=== PATIENT | female | born 1975 | race Two or more races ===

== ENCOUNTER 2023-02-12 05:13 | Day surgery (SDC) | payer SELFPAY ==
[2023-02-02 14:50] LABS: BASOPHILS # (AUTO) 0.1 X10'3 (0-0.2); BASOPHILS % (AUTO) 0.4 % (0-1); EOSINOPHILS # (AUTO) 0.1 X10'3 (0-0.9); EOSINOPHILS % (AUTO) 0.9 % (0-6); LYMPHOCYTES # (AUTO) 2.1 X10'3 (1.1-4.8); MEAN CORPUSCULAR HEMOGLOBIN 27.4 PG (27.0-31.0); MEAN CORPUSCULAR HGB CONC 32.9 g/dL (33.0-36.5); MEAN CORPUSCULAR VOLUME 83.4 FL (78-98); MEAN PLATELET VOLUME 7.8 FL (7.4-10.4); MONOCYTES # (AUTO) 0.8 X10'3 (0-0.9); MONOCYTES % (AUTO) 7.1 % (2-12); NEUTROPHILS # (AUTO) 8.5 X10'3 (1.8-7.7); NEUTROPHILS % (AUTO) 73.6 % (42-75); PRE OP HEMATOCRIT 39.2 % (35.0-45.0); PRE OP HEMOGLOBIN 12.9 g/dL (12.0-16.0); PRE OP PLATELET COUNT 267 X10'3 (140-440); RED BLOOD COUNT 4.69 X10'6 (4.20-5.60); RED CELL DISTRIBUTION WIDTH 13.6 % (11.5-14.5)
[2023-02-02 15:00] LABS: ALBUMIN 3.6 G/DL (3.4-5.0); ALKALINE PHOSPHATASE 70 IU/L (46-116); BLOOD UREA NITROGEN 9 MG/DL (7-18); BUN/CREATININE RATIO 12.2 (10.0-20.0); CALCIUM 8.9 MG/DL (8.5-10.1); CHLORIDE 104 MMOL/L (99-107); CREATININE 0.74 MG/DL (0.40-0.90); PRE OP ALT 33 U/L (30-65); PRE OP ANION GAP 9 (8-16); PRE OP AST 23 U/L (10-37); PRE OP BILIRUB, TOTAL 0.3 MG/DL (0.0-1.0); PRE OP GLUCOSE 97 MG/DL (70-104); PRE OP POTASSIUM 3.8 MMOL/L (3.4-5.1); PRE OP SODIUM 139 MMOL/L (135-145); TOTAL CARBON DIOXIDE 26.4 MMOL/L (24-32); TOTAL PROTEIN 7.1 G/DL (6.4-8.2); eGFR 84 ML/MIN
[2023-02-12] VITALS (9 sets, daily range): BP systolic 108–128; BP diastolic 49–73
[~2023-02-12] VITALS: Ht 160 cm; Wt 74.8 kg
[~2023-02-12 05:13] MED LIST: ACET-1013 PO; DICL20GE TOP; IBUP-24 PO; LEVO125T8 PO; ringers solution, lacted 1,000 ML IV SCH
[2023-02-12] MEDS ORDERED: famotidine 20mg tablet PO ONE (05:30)
[2023-02-12] MEDS ORDERED: cefazolin 2gm/D5W 100mL 100 ML IV ONE (05:30)
[2023-02-12] MEDS ORDERED: LIDOcaine 1% (10mg/ml) 2ml vial ONE (05:59)
[2023-02-12] MEDS ORDERED: LIDOcaine 1% W/epiNEPHrine 1:100,000 20ml vial ONE (06:58)
[2023-02-12] MEDS ORDERED: TETRACAINE 0.5% 4 ML OPHTHALMIC DROPS ONE (06:58)
[2023-02-12] MEDS ORDERED: polyvinyl alcohol ophthalmic drops 15ml bottle ONE (07:05)
[2023-02-12] MEDS ORDERED: midazolam 1 mg/ML 2ml injection ONE (07:22)
[2023-02-12] MEDS ORDERED: fentaNYL/PF 50MCG/1 ML 2ML syringe ONE ×2 (07:22→07:57)
[2023-02-12] MEDS ORDERED: sevoflurane 250ml liquid IH ONE (07:30)
[2023-02-12] MEDS ORDERED: ringers solution, lacted 1,000 ML IV SCH (08:30)
[2023-02-12] MEDS ORDERED: ondansetron/PF 4mg/2ml inj IV PRN (08:30)
[2023-02-12] MEDS ORDERED: morphine 4 MG/ML inj SYRINge IV PRN (08:30)
[2023-02-12] MEDS ORDERED: morphine 2 MG/ML inj. syringe IV PRN (08:30)
[2023-02-12] MEDS ORDERED: meperidine/PF 25mg/ml syringe IV PRN ×3 (08:30)
[2023-02-12] MEDS ORDERED: proCHLORperazine 10 MG/2 ml inj IV PRN (08:30)
--- NOTE | 2023-02-12 08:59 | NUR ---
Received from OR via [facility], accompanied by Anesthesiologist and report given by PARVIN Anesthesiologist. PATIENT WAKING UP, NO S/S OF PAIN, V/S WNL, 20G TO LEFT HAND, BILATERAL UPPER AND LOWER EYELID DRESSING C/D/I. Addendum: 02/12/23 at 2036 by Minesh Johns RN Amended: Links added.
[2023-02-12] MEDS ORDERED: ondansetron/PF 4mg/2ml inj ONE (09:23)
[2023-02-12] MEDS ORDERED: dexamethasone sod phosphate 4mg/ml inj. ONE (09:23)
[2023-02-12] MEDS ORDERED: LIDOcaine 1%/PF 5ML 10 MG/ML VIAL ONE (09:23)
[2023-02-12] MEDS ORDERED: propofol inj 20 ML IV ONE (09:23)
--- NOTE | 2023-02-12 10:14 | NUR ---
ALL DISCHARGE CRITERIA HAS BEEN MET. VSS, PAIN AT A TOLERABLE LEVEL, ABLE TO SAFELY AMBULATE AND TRANSFER SELF. IV TAKEN OUT WITHOUT ANY COMPLICATIONS. ALL DISCHARGE INSTRUCTIONS COVERED WITH PATIENT AND ALL QUESTIONS ANSWERED. PATIENT TAKEN OUT VIA WHEELCHAIR WITH ALL BELONGINGS TO PERSONAL VEHICLE WHERE FAMILY DROVE PATIENT HOME. Addendum: 02/12/23 at 1025 by Minesh Johns RN Amended: Links added.
== END 2023-02-12 10:14 | disposition home or self-care (01) ==
LOC: PAS 05:13
PROVIDERS: ATTEND Specialist
DX: H02.834 Dermatochalasis of left upper eyelid (principal); H02.831 Dermatochalasis of right upper eyelid; E75.5 Other lipid storage disorders; Z41.1 Encounter for cosmetic surgery; E03.9 Hypothyroidism, unspecified; Z79.899 Other long term (current) drug therapy; Z98.890 Other specified postprocedural states; Z90.49 Acquired absence of other specified parts of digestive tract
CPT/HCPCS: 15821; 15823; 36415; 80053; 82948; 85025; 93005; A6402; J0690; J1100; J2175; J2250; J2405; J2704; J3010; J3490; J7030; J7120; Z7506; Z7508; Z7512; A4215; A4618; A6410; A6449; A7000